=== PATIENT | female | born 1975 | race Two or more races ===

== ENCOUNTER 2017-10-10 15:20 | Outpatient (CLI) | payer OTHER | END 2017-10-10 15:27 | disposition home or self-care (01) | LOC: RAD 15:20 | DX: M79.675 Pain in left toe(s) (principal); S93.505A Unspecified sprain of left lesser toe(s), initial encounter ==

== ENCOUNTER → 2017-10-10 | Outpatient (CLI) | payer OTHER ==
[~2017-10-10] VITALS: Ht 152.4 cm; Wt 86.2 kg
[~2017-10-10] MED LIST: BUCALSEP SPRAY30 ML MM; GILTUSS TR TAB1 EACH PO; TESSALON200 MG PO; ZITHROMAX500 MG PO
== END | disposition home or self-care (01) ==
LOC: PPHC 13:56
DX: M79.675 Pain in left toe(s) (principal); S93.52 Sprain of metatarsophalangeal joint of toe

== ENCOUNTER → 2017-11-22 | Outpatient (CLI) | payer OTHER | END | disposition home or self-care (01) | LOC: PPHC 08:56 | DX: I10 Essential (primary) hypertension (principal) ==

== ENCOUNTER 2018-02-08 09:09 | Outpatient (CLI) | payer OTHER | END 2018-02-08 09:12 | disposition home or self-care (01) | LOC: LAB 09:09 | DX: D64.89 Other specified anemias (principal); E03.8 Other specified hypothyroidism; E78.4 Other hyperlipidemia; E11.9 Type 2 diabetes mellitus without complications; R73.09 Other abnormal glucose; I10 Essential (primary) hypertension; Z13.6 Encounter for screening for cardiovascular disorders ==

== ENCOUNTER 2018-04-23 08:21 | Outpatient (CLI) | payer OTHER | END 2018-04-23 08:24 | disposition home or self-care (01) | LOC: MAMO-SONO 08:21 | DX: Z12.31 Encounter for screening mammogram for malignant neoplasm of breast (principal); N60.01 Solitary cyst of right breast ==